=== PATIENT | male | born 1960 | race Caucasian/White ===

== ENCOUNTER 2018-04-26 13:53 | Emergency (ER) | payer MEDICARE ==
[2018-04-26] MEDS: diazePAM 5 MG TAB PO (15:05)
[2018-04-26] MEDS: BUPIVACAINE HCL 0.5% 30 ML VIAL SC (15:08)
== END 2018-04-26 17:06 | disposition home or self-care (01) ==
LOC: M ED 13:53
DX: M62.441 Contracture of muscle, right hand (principal); I10 Essential (primary) hypertension; G43.909 Migraine, unspecified, not intractable, without status migrainosus; J44.9 Chronic obstructive pulmonary disease, unspecified; K21.9 Gastro-esophageal reflux disease without esophagitis; F32.9 Major depressive disorder, single episode, unspecified; Z86.73 Personal history of transient ischemic attack (TIA), and cerebral infarction without residual deficits; Z72.0 Tobacco use; Z79.899 Other long term (current) drug therapy; Z88.0 Allergy status to penicillin; Z88.8 Allergy status to other drugs, medicaments and biological substances
CPT/HCPCS: 99284

== ENCOUNTER 2018-04-29 14:10 | Emergency (ER) | payer MEDICARE ==
[2018-04-29] MEDS: BUPIVACAINE HCL 0.5% 10 ML VIAL SC (17:19)
[2018-04-29] MEDS: diazePAM 5 MG TAB PO (17:19)
[2018-04-29] MEDS: NORCO, ANEXSIA 5/325MG TABLET (HYDROcodone/ACETAMINOPHEN) PO (17:56)
== END 2018-04-29 19:11 | disposition home or self-care (01) ==
LOC: M ED 14:10
DX: M24.541 Contracture, right hand (principal); I69.398 Other sequelae of cerebral infarction; R05 Cough; I25.2 Old myocardial infarction; I10 Essential (primary) hypertension; J44.9 Chronic obstructive pulmonary disease, unspecified; K21.9 Gastro-esophageal reflux disease without esophagitis; F33.9 Major depressive disorder, recurrent, unspecified; F41.9 Anxiety disorder, unspecified; F17.200 Nicotine dependence, unspecified, uncomplicated; Z86.69 Personal history of other diseases of the nervous system and sense organs; Z98.890 Other specified postprocedural states; Z88.8 Allergy status to other drugs, medicaments and biological substances; Z88.5 Allergy status to narcotic agent; Z88.0 Allergy status to penicillin
CPT/HCPCS: 71046

== ENCOUNTER 2018-06-06 12:11 | Emergency (ER) | payer MEDICARE ==
[2018-06-06] MEDS: BUPIVACAINE HCL 0.5% 10 ML VIAL SC ×2 (14:00→14:30)
[2018-06-06] MEDS ORDERED: DIAZEPAM 2.5 MG RECTAL GEL (DIASTAT) PR (14:15)
[2018-06-06] MEDS: diazePAM 5 MG TAB PO (14:34)
[2018-06-06] MEDS ORDERED: NEOSPORIN TOP OINT 15GM As Ordered (15:18)
== END 2018-06-06 16:38 | disposition home or self-care (01) ==
LOC: M ED 12:11
DX: M24.541 Contracture, right hand (principal); I69.354 Hemiplegia and hemiparesis following cerebral infarction affecting left non-dominant side; I69.351 Hemiplegia and hemiparesis following cerebral infarction affecting right dominant side; S60.511A Abrasion of right hand, initial encounter; X58.XXXA Exposure to other specified factors, initial encounter; Y92.89 Other specified places as the place of occurrence of the external cause; Z88.1 Allergy status to other antibiotic agents; Z88.0 Allergy status to penicillin; Z88.5 Allergy status to narcotic agent; Z79.899 Other long term (current) drug therapy
CPT/HCPCS: 11719

== ENCOUNTER 2018-08-12 02:13 | Emergency (ER) | payer MEDICARE ==
[2018-08-12] MEDS: IPRATROPIUM 0.5MG/ALBUTEROL 2.5MG INH SOL UD 3ML (DUONEB)(J7620) NEB (03:32)
[2018-08-12] MEDS ORDERED: LIDOCAINE 1% MDV 20ML VIAL As Ordered (03:37)
[2018-08-12] MEDS: traMADol 50 MG TAB PO (03:42)
[2018-08-12] MEDS: LIDOCAINE 1% SDV INJ 30 ML VIAL SC (03:48)
[2018-08-12 03:49] LABS: BASO % 0.7 % (0.0-1.0); EOS # 0.2 10^3/uL (0.0-0.50); EOS % 4.7 % (0.0-3.0); HEMATOCRIT 45.2 % (42.0-52.0); HEMOGLOBIN 15.3 g/dl (13.5-17.5); IMMATURE GRANULOCYTE % 0.2 % (0-3.0); MEAN CORPUSCULAR HEMOGLOBIN 31.3 pg (27.0-33.0); MEAN CORPUSCULAR HGB CONC 33.8 g/dl (32.0-36.5); MEAN CORPUSCULAR VOLUME 92.4 fl (80.0-96.0); MONO # 0.5 10^3/uL (0.0-0.8); MONO % 10.8 % (0.0-5.0); NEUTROPHILS # 1.7 10^3/uL (1.8-7.7); NEUTROPHILS % 37.6 % (36.0-66.0); PLATELET COUNT, AUTOMATED 202 10^3/uL (150-450); RED BLOOD COUNT 4.89 10^6/uL (4.30-6.10); RED CELL DISTRIBUTION WIDTH 13.6 % (11.5-14.5); WHITE BLOOD COUNT 4.4 10^3/uL (4.0-10.0)
[2018-08-12 04:07] LABS: ANION GAP 8 MEQ/L (8-16); BLOOD UREA NITROGEN 21 MG/DL (7-18); CARBON DIOXIDE LEVEL 24 MEQ/L (21-32); CHLORIDE LEVEL 110 MEQ/L (98-107); GLOMERULAR FILTRATION RATE > 60.0 (>56); GLUCOSE, FASTING 134 MG/DL (70-100); POTASSIUM SERUM 4.5 MEQ/L (3.5-5.1); SODIUM LEVEL 142 MEQ/L (136-145)
[2018-08-12] MEDS: AZITHROMYCIN 250 MG TAB PO (05:13)
[2018-08-12] MEDS: predniSONE 20 MG TAB PO (05:13)
== END 2018-08-12 05:34 | disposition home or self-care (01) ==
LOC: M ED 02:13
DX: J20.9 Acute bronchitis, unspecified (principal); G89.29 Other chronic pain; Z86.73 Personal history of transient ischemic attack (TIA), and cerebral infarction without residual deficits; Z72.0 Tobacco use; F12.10 Cannabis abuse, uncomplicated; Z88.0 Allergy status to penicillin; Z88.8 Allergy status to other drugs, medicaments and biological substances
CPT/HCPCS: 71045

== ENCOUNTER 2018-09-28 12:57 | Emergency (ER) | payer MEDICARE ==
[2018-09-28] MEDS: FLEET ENEMA PR (14:30)
== END 2018-09-28 15:53 | disposition home or self-care (01) ==
LOC: M ED 12:57
DX: K59.00 Constipation, unspecified (principal); I25.10 Atherosclerotic heart disease of native coronary artery without angina pectoris; I10 Essential (primary) hypertension; J44.9 Chronic obstructive pulmonary disease, unspecified; E78.5 Hyperlipidemia, unspecified; F33.9 Major depressive disorder, recurrent, unspecified; F41.9 Anxiety disorder, unspecified; F17.200 Nicotine dependence, unspecified, uncomplicated; Z79.899 Other long term (current) drug therapy; Z86.73 Personal history of transient ischemic attack (TIA), and cerebral infarction without residual deficits; Z88.5 Allergy status to narcotic agent; Z88.0 Allergy status to penicillin; Z88.8 Allergy status to other drugs, medicaments and biological substances
CPT/HCPCS: 74018

== ENCOUNTER → 2019-12-15 | Outpatient (REF) | payer MEDICARE ==
[~2019-12-15] MED LIST: ACET65TA OR; ALB2.5NEB INH; ALBU17IN2 IN; ANEX7.5T PO; ANEXSIA PO; ASPI325T OR; ATROVENT0.02% INH; AZIT-12 PO; BACL10TA PO; BACL1TAB9 OR; COLA100C2 OR; COLA100C5 PO; CYMB1CAP5 OR; CYMB60CA3 PO; DIAZ5TAB; DOCU5LIQ PO; DOXY-350 PO; ECASA OR; FLEX10TA2 PO; LEVA750T OR; LOPI600T OR; LOPI600T PO; MAALSUS OR; MAGN200T PO; METO-346 PO; METO25TA2 OR; MILKSUS OR; MIRA3350 PO; MIRALEX OR; MOM30SS PO; MS C30TA2 OR; NEUR800T OR; NEUR800T PO; NORC1TAB7 PO; NYAM10003 TOP; NYSTPOW4 TOP; ONDA-1 OR; ONDA-1 PO; Oxycontin PO; PHEN 25 PO; PRED20TA PO; PREG50CA OR; PRIL20CA OR; PROT1TAB2 OR; PROT1TAB2 PO; Prozac OR; SENO8.6T5 OR; SERO1TAB OR; SERO1TAB3 OR; SKEL800T5 OR; TRAM50TA2 OR; TRAM50TA2 PO; TRAZ-164 PO; TRAZ-257; TRAZ-257 PO; TYLE325T5 PO; ULTR50TA PO; VALI10TA OR; VALI5TAB PO; VICO5TAB OR; VICODINES TAB OR; VITA100T2 PO; VITA500C24 PO; VITMTA PO; XANA0.25 PO; XANA0.5T OR; ZEST10TA OR; cannabis; desyrel PO; fleet enema PR; hydrocodone OR
[2019-12-15 17:31] LABS: BASO % 0.6 % (0.0-1.0); EOS # 0.2 10^3/uL (0.0-0.5); EOS % 2.1 % (0.0-3.0); HEMATOCRIT 52.8 % (42.0-52.0); HEMOGLOBIN 17.2 g/dl (13.5-17.5); LYMPH % 27.7 % (24.0-44.0); MEAN CORPUSCULAR HEMOGLOBIN 30.9 pg (27.0-33.0); MEAN CORPUSCULAR HGB CONC 32.6 g/dl (32.0-36.5); MONO # 0.8 10^3/uL (0.0-0.8); MONO % 11.8 % (0.0-5.0); NEUTROPHILS # 4.1 10^3/uL (1.5-8.5); NEUTROPHILS % 57.5 % (36.0-66.0); PLATELET COUNT, AUTOMATED 227 10^3/uL (150-450); RED BLOOD COUNT 5.56 10^6/uL (4.30-6.10); WHITE BLOOD COUNT 7.1 10^3/uL (4.0-10.0)
[2019-12-15 17:48] LABS: ALBUMIN 3.7 GM/DL (3.2-5.2); ALT/SGPT 128 U/L (12-78); BILIRUBIN,TOTAL 0.4 MG/DL (0.2-1.0); BLOOD UREA NITROGEN 13 MG/DL (7-18); CALCIUM LEVEL 8.6 MG/DL (8.8-10.2); CARBON DIOXIDE LEVEL 28 MEQ/L (21-32); CHLORIDE LEVEL 105 MEQ/L (98-107); CHOLESTEROL LEVEL 259 MG/DL (<200); CHOLESTEROL RISK RATIO 6.317 (<5); CREATININE FOR GFR 0.85 MG/DL (0.70-1.30); GLOMERULAR FILTRATION RATE > 60.0 (>49); GLUCOSE, FASTING 82 MG/DL (70-100); HDL CHOLESTEROL 41 MG/DL (>40); LDL CHOLESTEROL 189 MG/DL (<100); NON-HDL-C 218 MG/DL; POTASSIUM SERUM 4.5 MEQ/L (3.5-5.1); SODIUM LEVEL 140 MEQ/L (136-145); TOTAL PROTEIN 7.9 GM/DL (6.4-8.2); TRIGLYCERIDES LEVEL 146 MG/DL (<150)
[2019-12-15 18:02] LABS: HEMOGLOBIN A1c 5.6 %
== END ==
LOC: M LAB REF 16:24
PROVIDERS: ATTEND Nurse Practitioner Family
DX: Z00.01 Encounter for general adult medical examination with abnormal findings (principal); E07.9 Disorder of thyroid, unspecified; E78.00 Pure hypercholesterolemia, unspecified

== ENCOUNTER → 2020-08-25 | Outpatient (REF) | payer MEDICARE ==
[2020-08-25 19:20] LABS: BASO # 0.1 10^3/uL (0.0-0.2); BASO % 0.8 % (0.0-1.0); EOS # 0.2 10^3/uL (0.0-0.5); EOS % 2.9 % (0.0-3.0); HEMATOCRIT 48.1 % (42.0-52.0); HEMOGLOBIN 16.6 g/dl (13.5-17.5); LYMPH % 31.4 % (24.0-44.0); MEAN CORPUSCULAR HEMOGLOBIN 31.7 pg (27.0-33.0); MEAN CORPUSCULAR HGB CONC 34.5 g/dl (32.0-36.5); MEAN CORPUSCULAR VOLUME 91.8 fl (80.0-96.0); MONO # 0.6 10^3/uL (0.0-0.8); MONO % 9.7 % (0.0-5.0); NEUTROPHILS # 3.6 10^3/uL (1.5-8.5); PLATELET COUNT, AUTOMATED 282 10^3/uL (150-450); RED BLOOD COUNT 5.24 10^6/uL (4.30-6.10); WHITE BLOOD COUNT 6.5 10^3/uL (4.0-10.0)
[2020-08-25 19:58] LABS: HEMOGLOBIN A1c 5.4 %
[2020-08-25 20:02] LABS: ALBUMIN 3.4 GM/DL (3.2-5.2); ALT/SGPT 74 U/L (12-78); BILIRUBIN,TOTAL 0.4 MG/DL (0.2-1.0); BLOOD UREA NITROGEN 22 MG/DL (7-18); CARBON DIOXIDE LEVEL 27 MEQ/L (21-32); CHLORIDE LEVEL 106 MEQ/L (98-107); CHOLESTEROL LEVEL 265 MG/DL (<200); CHOLESTEROL RISK RATIO 8.548 (<5); CREATININE FOR GFR 0.88 MG/DL (0.70-1.30); FREE T4 1.03 NG/DL (0.76-1.46); GLOMERULAR FILTRATION RATE > 60.0 (>49); GLUCOSE, FASTING 104 MG/DL (70-100); HDL CHOLESTEROL 31 MG/DL (>40); LDL CHOLESTEROL 165 MG/DL (<100); NON-HDL-C 234 MG/DL; POTASSIUM SERUM 4.6 MEQ/L (3.5-5.1); SODIUM LEVEL 138 MEQ/L (136-145); TOTAL PROTEIN 7.5 GM/DL (6.4-8.2); TRIGLYCERIDES LEVEL 343 MG/DL (<150)
== END ==
LOC: M LAB REF 18:44
PROVIDERS: ATTEND Physician Assistant
DX: R73.01 Impaired fasting glucose (principal); R94.6 Abnormal results of thyroid function studies; E78.00 Pure hypercholesterolemia, unspecified

== ENCOUNTER → 2023-01-03 | Outpatient (REF) | payer MEDICARE ==
[~2023-01-03] MED LIST changes: -DOXY-350 PO; +DOXY-444 PO
[2023-01-03 17:01] LABS: CHOLESTEROL RISK RATIO 7.11 (<5); HDL CHOLESTEROL 37.1 MG/DL (>40); THYROID STIMULATING HORMONE 2.846 uIU/ML (0.55-4.78)
[2023-01-03 18:59] LABS: LDL CHOLESTEROL 192.1 MG/DL (<100)
== END ==
LOC: M LAB REF 16:02
PROVIDERS: ATTEND Nurse Practitioner Family
DX: E03.9 Hypothyroidism, unspecified (principal)

== ENCOUNTER 2023-06-22 16:25 | Emergency (ER) | payer MEDICARE ==
[~2023-06-22] VITALS: Ht 170.2 cm; Wt 77.3 kg
[~2023-06-22 16:25] MED LIST changes: -TRAZ-257
[2023-06-22] MEDS ORDERED: FLEET OIL RETENTION ENEMA PR STA ×2 (17:18→23:46)
[2023-06-22] MEDS ORDERED: GLYCERIN ADULT SUPP PR ONE (17:20)
[2023-06-22] MEDS ORDERED: NS 1,000 ML IV ONE (19:40)
[2023-06-22] MEDS ORDERED: ISOVUE-370 76% 100ML VIAL As Ordered ONE (19:42)
[2023-06-22 20:27] LABS: BASO # 0.1 10^3/uL (0.0-0.2); BASO % 0.7 % (0.0-1.0); EOS % 0.3 % (0.0-3.0); HEMATOCRIT 43.2 % (42.0-52.0); HEMOGLOBIN 15.4 g/dl (13.5-17.5); LYMPH # 2.2 10^3/uL (1.5-5.0); LYMPH % 22.1 % (24.0-44.0); MEAN CORPUSCULAR HEMOGLOBIN 30.6 pg (27.0-33.0); MEAN CORPUSCULAR HGB CONC 35.6 g/dl (32.0-36.5); MEAN CORPUSCULAR VOLUME 85.9 fl (80.0-96.0); MONO # 0.8 10^3/uL (0.0-0.8); MONO % 7.9 % (2.0-8.0); NEUTROPHILS % 68.8 % (36.0-66.0); PLATELET COUNT, AUTOMATED 249 10^3/uL (150-450); RED BLOOD COUNT 5.03 10^6/uL (4.30-6.10); WHITE BLOOD COUNT 10.1 10^3/uL (4.0-10.0)
[2023-06-22 20:40] LABS: ERYTHROCYTE SEDIMENTATION RATE 15 mm/hr (0-20)
[2023-06-22 20:41] LABS: ALBUMIN 3.6 G/DL (3.2-5.2); ALKALINE PHOSPHATASE 65 U/L (46-116); ALT/SGPT 48 U/L (7.0-40); AST/SGOT 28 U/L (<34); BILIRUBIN,TOTAL 0.6 MG/DL (0.3-1.2); BLOOD UREA NITROGEN 10 MG/DL (9-23); CALCIUM LEVEL 8.7 MG/DL (8.3-10.6); CARBON DIOXIDE LEVEL 18 MMOL/L (20-31); CHLORIDE LEVEL 110 MMOL/L (98-107); CREATININE FOR GFR 0.68 MG/DL (0.70-1.30); GLOMERULAR FILTRATION RATE > 60.0 (>49); GLUCOSE, FASTING 89 MG/DL (74-106); POTASSIUM SERUM 3.4 MMOL/L (3.5-5.1); SODIUM LEVEL 140 MMOL/L (136-145); TOTAL PROTEIN 6.6 G/DL (5.7-8.2)
[2023-06-22] MEDS ORDERED: HOME MED LIST COMPLETE! XX SCH (22:15)
[2023-06-22 23:58] VITALS: BP 123/70; TEMP 98; O2SAT 100
[2023-06-23] MEDS ORDERED: LORazepam 2 MG/ML 1ML VIAL IV STA (00:06)
[2023-06-23] MEDS ORDERED: SENN-186 PO (00:50)
[2023-06-23] MEDS ORDERED: FLEEENE12 PR (00:50)
== END 2023-06-23 04:59 | disposition home or self-care (01) ==
LOC: EDBD 16:25 → M ED 16:25
DX: K56.41 Fecal impaction (principal); M25.462 Effusion, left knee; M25.562 Pain in left knee; I10 Essential (primary) hypertension; I25.2 Old myocardial infarction; K21.9 Gastro-esophageal reflux disease without esophagitis; Z86.73 Personal history of transient ischemic attack (TIA), and cerebral infarction without residual deficits; E78.5 Hyperlipidemia, unspecified; J44.9 Chronic obstructive pulmonary disease, unspecified; Z88.4 Allergy status to anesthetic agent; Z88.8 Allergy status to other drugs, medicaments and biological substances; Z88.0 Allergy status to penicillin; Z79.899 Other long term (current) drug therapy
CPT/HCPCS: 73564; 74018; 74177; 80053; 83605; 85025; 85652; 86140; 87635; 96374; 99284; J2060; Q9967